=== PATIENT | male | born 1985 | race Caucasian/White ===

== ENCOUNTER → 2022-05-07 14:51 | Outpatient (CLI) | payer OTHER, SELFPAY ==
--- NOTE | 2022-05-07 | DI.MRI.S_ITS ---
PROCEDURE: MR LOWER LEG LT WO CON COMPARISON: None. INDICATIONS: LEFT TIBIA STRESS FRACTURES Technique: Multiplanar and multisequence MR images of left lower leg were obtained without IV contrast. FINDINGS: Bones and joints: There is no marrow edema. No periosteal reaction or cortical destruction. No suspicious intraosseous lesion. No fracture or dislocation. Soft tissues: Visualized left lower leg muscle shows normal signal intensity. No intramuscular mass or fluid collection. No full-thickness muscle or tendon rupture. IMPRESSION: 1. No MR evidence of tibial stress injuries in left lower leg. 2. No gross muscle or soft tissue abnormality is seen in left lower leg. Dictated by: Bruce Watson M.D. on 05/10/2022 at 10:22 Approved by: Bruce Watson M.D. on 05/10/2022 at 10:27
--- NOTE | 2022-05-07 | DI.MRI.S_ITS ---
PROCEDURE: MR LOWER LEG RT WO CON INDICATIONS: RIGHT TIBIA STRESS FRACTURES TECHNIQUE: Noncontrast coronal and sagittal T1 spin echo and STIR; axial T1 spin echo and T2 fast spin echo with fat saturation through the right lower leg. COMPARISON: None. FINDINGS: Image quality: Excellent. Bones: The visualized bone marrow demonstrates normal signal on all sequences. The overlying cortex appears intact. No fractures lines or intra-osseous lesions. Soft tissues: The scanned muscles demonstrate normal overall bulk and internal signal. Subcutaneous tissues appear normal as well. No soft tissue masses are present. IMPRESSION: No MR evidence of tibial stress injuries. No gross muscle or tendon signal abnormality is seen. Dictated by: Bruce Watson M.D. on 05/10/2022 at 10:18 Approved by: Bruce Watson M.D. on 05/10/2022 at 10:22
== END ==
DX: M84.361A Stress fracture, right tibia, initial encounter for fracture (principal); M84.362A Stress fracture, left tibia, initial encounter for fracture; X58.XXXA Exposure to other specified factors, initial encounter
CPT/HCPCS: 73718